=== PATIENT | female | born 1960 | race Caucasian/White ===

== ENCOUNTER 2020-03-05 19:43 | Emergency (ER) | payer OTHER ==
[~2020-03-05] VITALS: Ht 170.2 cm; Wt 99.8 kg
[2020-03-05] MEDS ORDERED: OMEP20ER PO (20:36)
[2020-03-05] MEDS ORDERED: METO25 PT (20:36)
[2020-03-05] MEDS ORDERED: Percocet 5-3251 EACH PO (22:02)
[2020-03-05] MEDS ORDERED: Crutch1 EACH XX (23:20)
== END 2020-03-05 22:15 | disposition home or self-care (01) ==
LOC: ER 19:43
DX: S40.011A Contusion of right shoulder, initial encounter (principal); S89.91XA Unspecified injury of right lower leg, initial encounter; Z88.0 Allergy status to penicillin; Z79.899 Other long term (current) drug therapy; Z87.891 Personal history of nicotine dependence; W10.9XXA Fall (on) (from) unspecified stairs and steps, initial encounter
CPT/HCPCS: 29505; 73030; 73564; 73610; 99283-25; A9270

== ENCOUNTER 2020-08-02 15:02 | Inpatient (IN) | payer OTHER ==
[~2020-08-02] VITALS: Ht 167.6 cm; Wt 93.9 kg
[~2020-08-02 15:02] MED LIST: Crutch1 EACH XX; METO25 PT; OMEP20ER PO; Percocet 5-3251 EACH PO
[2020-08-02 15:44] LABS: BASOPHILS ABSOLUTE AUTO 0.03 K/mm3 (0.00-0.23); BASOPHILS PERCENT AUTO 0 % (0-2); EOSINOPHILS ABSOLUTE AUTO 0.08 K/mm3 (0.00-0.68); EOSINOPHILS PERCENT AUTO 1 % (0-6); Hematocrit 41.1 % (33.0-51.0); Hemoglobin 13.8 g/dL (11.5-16.0); IMMATURE GRAN ABSOLUTE AUTO 0.05 K/mm3 (0.00-0.10); IMMATURE GRAN PERCENT AUTO 1 % (0-1); LYMPHOCYTES ABSOLUTE AUTO 1.75 K/mm3 (0.84-5.20); LYMPHOCYTES PERCENT AUTO 18 % (21-46); MONOCYTES ABSOLUTE AUTO 1.37 K/mm3 (0.16-1.47); MONOCYTES PERCENT AUTO 14 % (4-13); Mean Corpuscular HGB 29.9 pg (26.0-34.0); Mean Corpuscular HGB Conc 33.6 g/dL (31.5-36.5); Mean Corpuscular Volume 89 fL (80-100); Mean Platelet Volume 10.4 fL (9.1-12.4); NEUTROPHILS ABSOLUTE AUTO 6.53 K/mm3 (1.96-9.15); NEUTROPHILS PERCENT AUTO 67 % (41-73); Platelet Count 173 K/mm3 (150-400); RDW Coefficient Variation 13.3 % (11.7-14.2); RDW Standard Deviation 43.6 fL (35.1-46.3); Red Blood Cell Count 4.62 M/mm3 (3.80-5.20); White Blood Cell Count 9.81 K/mm3 (4.00-11.30)
[2020-08-02 16:06] LABS: Troponin I 0.077 ng/mL (0.000-0.040)
[2020-08-02 16:14] LABS: Albumin, Blood 3.6 g/dL (3.4-5.0); Albumin/Globulin Ratio 0.9 (0.8-1.8); Bilirubin, Total 0.8 mg/dL (0.1-1.0); Creatinine, Blood 2.73 mg/dL (0.40-1.00); Globulin, Blood 3.9 g/dL (2.2-4.0); Potassium, Blood 2.4 mmol/L (3.5-5.5); Total Protein, Blood 7.5 g/dL (6.4-8.2)
[2020-08-02 17:01] LABS: Source, Urine Catheter
[2020-08-02 17:05] LABS: Blood, Urine 4+ (Neg); Glucose Qualitative, Urine Neg (Neg); Ketones, Urine Neg (Neg); Leukocyte Esterase, Urine 1+ (Neg); Nitrite, Urine Neg (Neg); Protein, Urine 3+ (Neg); Specific Gravity, Urine 1.025 (1.003-1.022); Urobilinogen, Urine 1+ (Normal)
[2020-08-02 17:07] LABS: International Normalized Ratio 1.06; Prothrombin Time Results 11.3 Sec (9.7-11.5)
[2020-08-02 17:13] LABS: Appearance, Urine Hazy (Clear); Bilirubin, Urine 1+ (Neg); Color, Urine Amber (P-Yellow)
[2020-08-02 17:15] LABS: Amorphous Light (0-Heavy); Bacteria Mod /hpf; Red Blood Cells, Urine 25-50 /hpf (0-2); Squamous Epithelial Cells Few /hpf (Few)
[2020-08-02 17:23] LABS: U Amphetamine Screen Not Detected; U Barbituate Screen Not Detected; U Benzodiazapine Screen Not Detected; U Buprenorphine Screen Not Detected; U Cannabinoids Screen Not Detected; U Cocaine Screen Not Detected; U Methadone Screen Not Detected; U Methamphetamine Screen Not Detected; U Opiates Screen Not Detected; U Oxycodone Screen Not Detected; U Phencyclidine Screen Not Detected; U Propoxyphene Screen Not Detected
[2020-08-02] MEDS ORDERED: Klonopin0.5 MG PO (18:44)
[2020-08-02] MEDS ORDERED: FLUTICASONE-SA1 EAC9 INH (18:45)
[2020-08-02] MEDS ORDERED: Incruse Ellipta 62.5 INH (18:46)
[2020-08-02] MEDS ORDERED: HYDCHL25 PO (18:46)
[2020-08-02] MEDS ORDERED: TOPI25 PO (18:46)
[2020-08-02] MEDS ORDERED: OMEP20ER PO (18:46)
[2020-08-02] MEDS ORDERED: LOSARTAN POTAS100 MG PO (18:47)
[2020-08-02] MEDS ORDERED: ATOR40TA PO (18:47)
[2020-08-02] MEDS ORDERED: METFORMIN HCL500 M3 PO (18:47)
[2020-08-03 05:39] LABS: Bun/Creatinine Ratio 7.9 (12.0-20.0); Calcium, Blood 8.6 mg/dL (8.5-10.1); Creatinine, Blood 5.42 mg/dL (0.40-1.00); Potassium, Blood 4.4 mmol/L (3.5-5.5)
--- NOTE | 2020-08-03 05:45 | NUR ---
SUMMARY PT AMBULATES TO THE BATHROOM WITH SUPERVISION AND IS INDEPENDENT WITH REPOSITIONING. NO BOWEL MOVEMENT THOUGHOUT THE NIGHT. PT SLEPT MOST THE NIGHT. VSS AND NO ACUTE CHANGES. CALL LIGHT IN REACH AND BED IS IN LOW POSITION.
[2020-08-03 11:19] LABS: Adenovirus F 40/41 Not Detected (NOT DETECT); Astrovirus Not Detected (NOT DETECT); Campylobacter Sp Not Detected (NOT DETECT); Cryptosporidium Not Detected (NOT DETECT); Cyclospora Cayetanensis Not Detected (NOT DETECT); E. Coli O157 Not Detected (NOT DETECT); Entamoeba Histolytica Not Detected (NOT DETECT); Enteroaggregative E. coli-EAEC Not Detected (NOT DETECT); Enteropathogenic E. coli-EPEC Not Detected (NOT DETECT); Enterotoxigenic E. coli-ETEC Not Detected (NOT DETECT); Giardia Lamblia Not Detected (NOT DETECT); Norovirus GI/GII Not Detected (NOT DETECT); Plesiomonas Shigelloides Not Detected (NOT DETECT); Rotavirus A Not Detected (NOT DETECT); Salmonella Sp Detected (NOT DETECT); Sapovirus Not Detected (NOT DETECT); Shiga Toxin-prod E. coli-STEC Not Detected (NOT DETECT); Shigella/Enteroin E. coli-EIEC Not Detected (NOT DETECT); Vibrio Cholerae Not Detected (NOT DETECT); Vibrio Sp Not Detected (NOT DETECT); Yersinia Enterocolitica Not Detected (NOT DETECT)
--- NOTE | 2020-08-03 14:32 | NUR ---
Dr. Dove here talking with pt.
--- NOTE | 2020-08-03 14:59 | NUR ---
Echocardiogram performd under my supervision.
[2020-08-03 17:24] LABS: CPK Creatine Kinase 384 U/L (26-193)
[2020-08-03 17:36] LABS: Albumin, Blood 2.9 g/dL (3.4-5.0); Anion Gap 7 mmol/L (6-16); Blood Urea Nitrogen 37 mg/dL (8-24); Bun/Creatinine Ratio 17.6 (12.0-20.0); CO2, Blood 28 mmol/L (21-32); Calcium, Blood 7.5 mg/dL (8.5-10.1); Chloride, Blood 112 mmol/L (98-108); Glomerular Filtration Rate 26 (60-); Glucose, Blood 99 mg/dL (70-99); Phosphorus, Blood 3.3 mg/dL (2.5-4.9); Potassium, Blood 2.9 mmol/L (3.5-5.5); Sodium, Blood 147 mmol/L (136-145)
--- NOTE | 2020-08-03 17:41 | NUR ---
SHIFT SUMMARY PT IS ALERT AND ORIENTEDx4. TODAY PT REPORTED 2 EPISODES OF DIARRHEA AND C/O ABD PAIN/CRAMPING WITH NO RELIEF FROM TYLENOL. ORDER FOR PRN FENTYNAL RECEIVED AND PT WOULD LIKE TO WAIT BEFORE RECEIVING IV PAIN MEDICINE. DISCUSSED WITH PT PAIN CONTROL MEASURES. TELEMETRY HAS SHOWN PT TO BE IN SINUS RHYTHM AND VITALS HAVE BEEN STABLE TODAY.
[2020-08-03 20:19] LABS: Source, Urine Voided
[2020-08-03 20:22] LABS: Appearance, Urine Clear (Clear); Bilirubin, Urine Neg (Neg); Blood, Urine 1+ (Neg); Color, Urine Yellow (P-Yellow); Glucose Qualitative, Urine Neg (Neg); Ketones, Urine Neg (Neg); Leukocyte Esterase, Urine 1+ (Neg); Nitrite, Urine Neg (Neg); Protein, Urine Neg (Neg); Urobilinogen, Urine NORM (Normal)
[2020-08-03 20:45] LABS: Bacteria Few /hpf; Red Blood Cells, Urine 0-2 /hpf (0-2); Squamous Epithelial Cells Few /hpf (Few)
[2020-08-03 20:46] LABS: Hyaline Casts 0-2 /lpf (0-2)
--- NOTE | 2020-08-03 22:10 | NUR ---
UPDATE ADRIAN TALBERT [employer] SERV[employer]ER NOTIFIED OF PT POTASSIUM OF 2.9 @2009, SHE SUGGESTED CALLING DR. POWER FOR ORDERS. ADRIAN CEDENO, ORDERED BRONCHODILATORS FOR PT DUE TO PT COMPLAINTS OF SOB AND NOT HAVING HOME MEDS WITH HER. DR. POWER NOTIFIED OF POTASSIUM OF 2.9 AT 2018 AND ORDERS RECIEVED, SEE EMAR.
--- NOTE | 2020-08-04 05:50 | NUR ---
SUMMARY PT HAD EPISODE OF SOB AND WAS FEELING ANXIOUS, SHE WAS SEEN BY RT AND GIVEN BREATHING TREATMENT, SEE EMAR. NO OTHER COMPLAINTS OF SOB THROUGHOUT THE NIGHT. PATIENT SLEPT AND HAD NO OTHER COMPLAINTS. AMBULATES INDEPENDENTLY TO BATHROOM. CALL LIGHT IN REACH AND BED IN LOW POSITION.
[2020-08-04 05:55] LABS: Bun/Creatinine Ratio 18.4 (12.0-20.0); Calcium, Blood 7.3 mg/dL (8.5-10.1); Creatinine, Blood 1.58 mg/dL (0.40-1.00); Magnesium, Blood 1.3 mg/dL (1.6-2.4); Potassium, Blood 3.1 mmol/L (3.5-5.5)
[2020-08-04 08:10] LABS: COMPLEMENT C3, SERUM 134 mg/dL (82-167); COMPLEMENT C4, SERUM 25 mg/dL (14-44)
--- NOTE | 2020-08-04 18:03 | NUR ---
SHIFT SUMMARY PATIENT TO THE FLOOR LATE THIS AFTERNOON. PATIENT ORIENTED TO THE ROOM. PATIENT ALERT, ORIENTED, INDEPENDENT IN THE ROOM THIS AFTERNOON. PATIENT PROVIDED WITH WATER. PATIENT ATTEMPTED TO NAP BEFORE DINNER. PATIENT CURRENTLY SITTING UP IN BED EATING DINNER.
[2020-08-04 18:33] LABS: Anion Gap 6 mmol/L (6-16); Blood Urea Nitrogen 23 mg/dL (8-24); Bun/Creatinine Ratio 16.1 (12.0-20.0); CO2, Blood 27 mmol/L (21-32); Calcium, Blood 7.9 mg/dL (8.5-10.1); Chloride, Blood 112 mmol/L (98-108); Creatinine, Blood 1.43 mg/dL (0.40-1.00); Glomerular Filtration Rate 40 (60-); Glucose, Blood 116 mg/dL (70-99); Phosphorus, Blood 3.2 mg/dL (2.5-4.9); Potassium, Blood 3.7 mmol/L (3.5-5.5); Sodium, Blood 145 mmol/L (136-145)
[2020-08-04 19:11] LABS: ANTI-DSDNA ANTIBODIES <1 IU/mL (0-9); RNP ANTIBODIES <0.2 AI (0.0-0.9); SJOGREN'S ANTI-SS-A <0.2 AI (0.0-0.9); SJOGREN'S ANTI-SS-B <0.2 AI (0.0-0.9); SMITH ANTIBODIES <0.2 AI (0.0-0.9)
--- NOTE | 2020-08-05 00:46 | NUR ---
08/04/202009 PT SITTING UP IN BED, REPORTS A HEADACHE, GAVE TYLENOL, WILL EVAL FOR EFFECT. NO OTHER APPARENT SIGNS OF DISTRESS. CALL LIGHT IS IN REACH.
--- NOTE | 2020-08-05 01:39 | NUR ---
08/04/20 2325 PT LYING IN BED, AWAKE, NO APPARENT SIGNS OF DISTRESS. CALL LIGHT IS REACH.
--- NOTE | 2020-08-05 01:39 | NUR ---
08/04/20 2200 PT LYING IN BED, EYES CLOSED, APPEARS TO BE RESTING. BREATHING IS EVEN, UNLABORED. NO APPARENT SIGNS OF DISTRESS. CALL LIGHT IS IN REACH.
--- NOTE | 2020-08-05 01:56 | NUR ---
PT LYING IN BED, EYES CLOSED, APPEARS TO BE RESTING. BREATHING IS EVEN, UNLABORED. NO APPARENT SIGNS OF DISTRESS. CALL LIGHT IS IN REACH.
--- NOTE | 2020-08-05 04:11 | NUR ---
PT IS AAO X 4, ON RA. REPORTED A HEADACHE, GOT TYLENOL AT HS.
[2020-08-05 05:58] LABS: Magnesium, Blood 1.5 mg/dL (1.6-2.4)
[2020-08-05 05:59] LABS: Bun/Creatinine Ratio 18.2 (12.0-20.0); Calcium, Blood 7.3 mg/dL (8.5-10.1); Creatinine, Blood 1.21 mg/dL (0.40-1.00); Potassium, Blood 3.9 mmol/L (3.5-5.5)
--- NOTE | 2020-08-05 06:08 | NUR ---
PT LYING IN BED, EYES CLOSED, APPEARS TO BE RESTING. BREATHING IS EVEN, UNLABORED. NO APPARENT SIGNS OF DISTRESS. CALL LIGHT IS IN REACH. NO OTHER CHANGES THIS SHIFT.
[2020-08-05] MEDS ORDERED: VISBIOME PROBIOTIC PO (14:06)
[2020-08-05] MEDS ORDERED: LEVFLO500 PO (14:06)
--- NOTE | 2020-08-05 16:30 | NUR ---
DISCHARGE NOTE PT DISCHARGED HOME. NO S&S OF DISTRESS NOTED AT THE TIME OF DISCHARGE, IV AND PG DC'D PRIOR TO DISCHARGE. PT WAS GIVEN VERBAL AND WRITTEN DISCHARGE INSTRUCTIONS AND ACKNOWLEDGED UNDERSTANDING OF THEM. MEDS FAXED TO [facility] PER PT REQUEST. PT HAS AN APPOINTMENT SCHEDULED FOR SUNDAY AT 1020. PT AWARE OF THE APPOINTMENT THEY SCHEDULED IT. PT WAS ESCORTED OUT VIA WC NO FURTHER QUESTIONS AT THE TIME OF DISCHARGE.
[2020-08-06 11:09] LABS: ANTIGLOMERULAR BM AB 3 units (0-20)
[2020-08-06 14:10] LABS: ANA DIRECT Negative (Negative); ANTIMYELOPEROXIDASE (MPO) ABS <9.0 U/mL (0.0-9.0); ANTIPROTEINASE 3 (PR-3) ABS <3.5 U/mL (0.0-3.5); ATYPICAL PANCA <1:20 titer (Neg:<1:20); CYTOPLASMIC (C-ANCA) <1:20 titer (Neg:<1:20); PERINUCLEAR (P-ANCA) <1:20 titer (Neg:<1:20)
== END 2020-08-05 16:00 | disposition home or self-care (01) | DRG 371 ==
LOC: ER 15:02 → PCU 18:35 → MEDS 08-04 17:17
PROVIDERS: Emergency Medicine; Internal Medicine; ADMIT Internal Medicine
DX: A02.0 Salmonella enteritis (principal); N17.0 Acute kidney failure with tubular necrosis; E87.0 Hyperosmolality and hypernatremia; E83.42 Hypomagnesemia; E83.51 Hypocalcemia; E87.6 Hypokalemia; F41.9 Anxiety disorder, unspecified; J43.9 Emphysema, unspecified; I12.9 Hypertensive chronic kidney disease with stage 1 through stage 4 chronic kidney disease, or unspecified chronic kidney disease; E11.22 Type 2 diabetes mellitus with diabetic chronic kidney disease; N18.9 Chronic kidney disease, unspecified; I25.2 Old myocardial infarction; Z87.891 Personal history of nicotine dependence; I95.9 Hypotension, unspecified; R31.9 Hematuria, unspecified
CPT/HCPCS: 0097U; 36415; 71046; 74176; 80048; 80053; 80069; 81001; 82550; 83516; 83520; 83605; 83690; 83735; 83880; 84484; 85025; 85610; 86160; 86225; 86235; 86256; 87040; 87086; 93005; 93010; 93306; 94640; 94760; 96365; 96366; 96367; 96368; 99285-25; A9270; A9270-GY; G0480; J0610; J3475; J3480; J7030; J7050; J7120; P9612

== ENCOUNTER 2021-10-15 11:01 | Emergency (ER) | payer OTHER ==
[~2021-10-15] VITALS: Ht 167.6 cm; Wt 95.2 kg
[~2021-10-15 11:01] MED LIST changes: +ATOR40TA PO; +FLUTICASONE-SA1 EAC9 INH; +HYDCHL25 PO; +Incruse Ellipta 62.5 INH; +Klonopin0.5 MG PO; +LEVFLO500 PO; +LOSARTAN POTAS100 MG PO; +METFORMIN HCL500 M3 PO; +TOPI25 PO; +VISBIOME PROBIOTIC PO
[2021-10-15] MEDS ORDERED: BENZ100A PO ×2 (13:38→13:48)
[2021-10-15] MEDS ORDERED: Prednisone20 MG PO ×2 (13:38→13:48)
== END 2021-10-15 14:06 | disposition home or self-care (01) ==
LOC: ER 11:01
DX: J44.1 Chronic obstructive pulmonary disease with (acute) exacerbation (principal); J44.0 Chronic obstructive pulmonary disease with (acute) lower respiratory infection; J20.8 Acute bronchitis due to other specified organisms; E11.9 Type 2 diabetes mellitus without complications; I10 Essential (primary) hypertension; Z88.0 Allergy status to penicillin; Z79.899 Other long term (current) drug therapy; Z87.891 Personal history of nicotine dependence
CPT/HCPCS: 71045; 94640; 99284-25; A9270; J7512

== ENCOUNTER 2023-01-16 10:53 | Day surgery (SDC) | payer MEDICARE, OTHER ==
[~2023-01-16] VITALS: Ht 167.6 cm; Wt 96.7 kg
[~2023-01-16 10:53] MED LIST changes: +BENZ100A PO; +Prednisone20 MG PO
[2023-01-16] MEDS ORDERED: POTCHL20ER PO (12:06)
--- NOTE | 2023-01-16 14:06 | NUR ---
01/16/23 1406 Ondina Stevens INTERSCALENE BLOCK DONE BY DR CRAVEN IN PRE OP.
--- NOTE | 2023-01-16 15:53 | NUR ---
01/16/23 Frances3 Kari Mitchell PT IN RECLINER WITH AT SIDE. CALL LIGHT WITHIN REACH. PT STATES NO PAIN
== END 2023-01-16 16:20 | disposition home or self-care (01) ==
LOC: ORSCSDS 10:53
PROVIDERS: Orthopaedic Surgery
PROC: 0RBK4ZZ Excision of Left Shoulder Joint, Percutaneous Endoscopic Approach (ICD-10-PCS; principal; 2023-01-16 13:00)
DX: M75.122 Complete rotator cuff tear or rupture of left shoulder, not specified as traumatic (principal); I10 Essential (primary) hypertension; J44.9 Chronic obstructive pulmonary disease, unspecified; E11.9 Type 2 diabetes mellitus without complications; Z87.891 Personal history of nicotine dependence; E66.9 Obesity, unspecified; Z68.34 Body mass index [BMI] 34.0-34.9, adult; Z79.84 Long term (current) use of oral hypoglycemic drugs; Z79.899 Other long term (current) drug therapy
CPT/HCPCS: 82947; A9270; J0171; J0690; J1100; J2250; J2405; J2704; J3010

== ENCOUNTER → 2023-02-21 | Outpatient (CLI) | payer MEDICARE, OTHER ==
[~2023-02-21] MED LIST changes: +POTCHL20ER PO
== END | disposition home or self-care (01) ==
LOC: LAB SHORT 07:48 → PLD 07:48
DX: B35.1 Tinea unguium (principal)
CPT/HCPCS: 88304; 88312

== ENCOUNTER 2024-05-22 11:13 | Emergency (ER) | payer MEDICARE, OTHER ==
[~2024-05-22] VITALS: Ht 167.6 cm; Wt 87.1 kg
[2024-05-22 11:23] VITALS: BP 170/95
[2024-05-22] MEDS ORDERED: PERM5TC TOP (12:56)
== END 2024-05-22 13:08 | disposition home or self-care (01) ==
LOC: ER 11:13
DX: B86 Scabies (principal); E11.9 Type 2 diabetes mellitus without complications; I10 Essential (primary) hypertension; J44.9 Chronic obstructive pulmonary disease, unspecified; Z79.84 Long term (current) use of oral hypoglycemic drugs; Z87.891 Personal history of nicotine dependence; Z79.899 Other long term (current) drug therapy; Z88.0 Allergy status to penicillin
CPT/HCPCS: 99282